=== PATIENT | male | born 1995 | race Caucasian/White ===

== ENCOUNTER 2018-08-31 12:46 | Emergency (ER) | payer BC, OTHER ==
[~2018-08-31] VITALS: Ht 167.6 cm; Wt 95.3 kg
--- OUTSIDE RECORDS SUMMARY | 2018-08-31 12:58 | XMS REPORT ---
Author Author MARE SUTHERLAND Organization [facility] Address [address] [place] [address] Care Team Providers Care Independent Sales Representative Name Role Phone MARE SUTHERLAND Unavailable PROBLEMS Type Condition ICD9-CM Code [id number] Code Onset Dates Condition Status SNOMED Code Problem Moderate persistent asthma without complication J45.40 Active [id number] Problem Asthma, moderate persistent, poorly-controlled J45.40 Active [id number] ALLERGIES No Known Allergies ENCOUNTERS Encounter Location Date Diagnosis [facility] [address] [facility] [id number] [place] [address] Dec, Asthma, moderate persistent, poorly-controlled J45.40 and Moderate persistent asthma without complication J45.40 IMMUNIZATIONS No Known Immunizations SOCIAL HISTORY Never Assessed REASON FOR VISIT Asthma, PT reports his asthma has recently worsened -Dre OLGUIN PLAN OF CARE Activity Details Follow Up 6 Months Reason:asthma VITAL SIGNS Height 77 in 2017-12-03 Weight 199.5 lbs 2017-12-03 Temperature 98.0 degrees Fahrenheit 2017-12-03 Heart Rate 74 bpm 2017-12-03 Respiratory Rate 20 2017-12-03 Oximetry 97 % 2017-12-03 BMI 23.65 kg/m2 2017-12-03 Blood pressure systolic 128 mmHg 2017-12-03 Blood pressure diastolic 68 mmHg 2017-12-03 MEDICATIONS Medication Instructions Dosage Frequency Start Date End Date Duration Status Montelukast Sodium 10 MG Orally Once a day 24h Active Pulmicort Flexhaler 90 MCG/ACT Inhalation Twice a day 2 puffs 12h Dec, Feb, 30 days Active Albuterol Sulfate HFA Active RESULTS No Results PROCEDURES No Known procedures INSTRUCTIONS MEDICATIONS ADMINISTERED No Known Medications MEDICAL (GENERAL) HISTORY Type Description Date Medical History Asthma
--- NOTE | 2018-08-31 14:17 | ED Chest Pain ---
General Chief Complaint: Chest Pain Stated Complaint: CHEST PAIN Nursing Triage Note: Pt arrived by private vehicle with chief complaint of chest pain. Pt stated it started yesterday and is getting worse with activity. Pt stated he has heart problems, but when asking about past medical history he stated he only has asthma. Pt stated that it feels tight and feels like needles. Pt is alert, oriented and ambulatory. Nursing Sepsis Screen: No Definite Risk Source: patient, RN notes reviewed Exam Limitations: no limitations Past Oiyyhlg-Egshkq-Djpmkm Hx Patient Social History Alcohol Use: Denies Use Recreational Drug Use: No Smoking Status: Never a Smoker 2nd Hand Smoke Exposure: No Recent Foreign Travel: No Contact w/Someone Who Travel: No Recent Infectious Disease Expo: No Recent Hopitalizations: No Physical Abuse: No Sexual Abuse: No Mistreated: No Fear: No Seasonal Allergies Seasonal Allergies: No Past Medical History Surgeries: No Respiratory: Yes Asthma Cardiac: No Neurological: No Genitourinary: No Gastrointestinal: No Musculoskeletal: No Endocrine: No HEENT: No Cancer: No Psychosocial: No Integumentary: No Blood Disorders: No Physical Exam Vital Signs Vital Signs - First Documented 08/31/18 13:22 Temp 98.6 Pulse 81 Resp 18 B/P (MAP) 127/107 (114) Pulse Ox 99 O2 Delivery Room Air Capillary Refill : Less Than 3 Seconds Height, Weight, BMI Height: 5'6.00" Weight: 210lbs. 0oz. 95.976131hv; BMI Method:Stated Progress/Results/Core Measures Results/Orders Lab Results Laboratory Tests Test 08/31/18 15:19 Range/Units White Blood Count 6.0 4.3-11.0 10^3/uL Red Blood Count 5.66 4.35-5.85 10^6/uL Hemoglobin 16.0 13.3-17.7 G/DL Hematocrit 48 40-54 % Mean Corpuscular Volume 84 80-99 FL Mean Corpuscular Hemoglobin 28 25-34 PG Mean Corpuscular Hemoglobin Concent 34 32-36 G/DL Red Cell Distribution Width 12.9 10.0-14.5 % Platelet Count 233 130-400 10^3/uL Mean Platelet Volume 9.9 7.4-10.4 FL Neutrophils (%) (Auto) 55 42-75 % Lymphocytes (%) (Auto) 36 12-44 % Monocytes (%) (Auto) 6 0-12 % Eosinophils (%) (Auto) 2 0-10 % Basophils (%) (Auto) 1 0-10 % Neutrophils # (Auto) 3.3 1.8-7.8 X 10^3 Lymphocytes # (Auto) 2.2 1.0-4.0 X 10^3 Monocytes # (Auto) 0.4 0.0-1.0 X 10^3 Eosinophils # (Auto) 0.1 0.0-0.3 10^3/uL Basophils # (Auto) 0.0 0.0-0.1 10^3/uL Sodium Level 141 135-145 MMOL/L Potassium Level 4.3 3.6-5.0 MMOL/L Chloride Level 102 98-107 MMOL/L Carbon Dioxide Level 29 21-32 MMOL/L Anion Gap 10 5-14 MMOL/L Blood Urea Nitrogen 17 7-18 MG/DL Creatinine 0.81 0.60-1.30 MG/DL Estimat Glomerular Filtration Rate > 60 BUN/Creatinine Ratio 21 Glucose Level 95 70-105 MG/DL Calcium Level 9.7 8.5-10.1 MG/DL Corrected Calcium 8.5-10.1 MG/DL Magnesium Level 1.8 1.8-2.4 MG/DL Total Bilirubin 0.8 0.1-1.0 MG/DL Aspartate Amino Transf (AST/SGOT) 17 5-34 U/L Alanine Aminotransferase (ALT/SGPT) 19 0-55 U/L Alkaline Phosphatase 65 40-136 U/L Troponin T < 15 <=15 NG/L Total Protein 8.2 6.4-8.2 GM/DL Albumin 5.2 H 3.2-4.5 GM/DL My Orders Orders - AYUSH BRANTLEY DO Chest Pa/Lat (2 View) (08/31/18 13:48) Cbc With Automated Diff (08/31/18 14:58) Troponin T (08/31/18 14:58) Comprehensive Metabolic Panel (08/31/18 14:58) Magnesium (08/31/18 14:58) Ekg Tracing (08/31/18 15:08) Vital Signs/I&O 08/31/18 13:22 Temp 98.6 Pulse 81 Resp 18 B/P (MAP) 127/107 (114) Pulse Ox 99 O2 Delivery Room Air Blood Pressure Mean: 114 Initial ECG Impression Date: Aug 31, 2018 Initial ECG Rhythm: Normal Sinus Initial ECG Intervals: Normal Initial ECG Impression: Normal Initial ECG Comparisson: No Previous ECG Available Departure Impression Primary Impression: Pleurisy Disposition: 01 HOME, SELF-CARE Condition: Stable Departure-Patient Inst. Decision time for Depature: 16:17 [place] [facility] [place]ructions: Pleuritic Chest Pain (DC) Add. Discharge Instructions: All discharge instructions reviewed with patient and/or family. Voiced understanding. MAKE TAKE 1000 mg OF TYLENOL &/OR 400 mg OF IBUPROFEN EVERY 6 HOURS NEEDED FOR CHEST PAIN. DO NOT EXCEED 4000 mg OF TYLENOL IN A 24 HOUR PERIOD. Scripts Methylprednisolone (Medrol) 4 Mg Tab.ds.pk 4 MG PO UD for 6 Days, #21 PKG 0 Refills PER DOSE PACK INSTRUCTIONS Prov: AYUSH BRANTLEY DO 08/31/18 AYUSH BRANTLEY DO Aug 31, 2018 14:17
--- NOTE | 2018-08-31 14:37 | NUR ---
Pt stated his chest pain started yesterday at noon after he got home paying bills. He was not doing any activities. Pt stated this previously happened in past in high school football. Pt has past medical history of asthma.
--- NOTE | 2018-08-31 14:59 | Diagnostic Imaging Report ---
INDICATION: Chest pain. COMPARISON: None. FINDINGS: Frontal and lateral views of the chest demonstrate normal heart size and pulmonary vascularity. The lungs are clear. There are no signs of infiltrate, pleural effusions or pneumothoraces. The visualized osseous structures show no acute abnormalities. IMPRESSION: 1. No acute process. No signs of infiltrates, effusions or pneumothoraces. Dictated by: Dictated on workstation # [id number]
[2018-08-31 15:51] LABS: BASOPHILS % (AUTO) 1 % (0-10); EOSINOPHILS % (AUTO) 2 % (0-10); HEMATOCRIT 48 % (40-54); LYMPHOCYTES % (AUTO) 36 % (12-44); MEAN CORPUSCULAR HEMOGLOBIN 28 PG (25-34); MEAN CORPUSCULAR HGB CONC 34 G/DL (32-36); MEAN CORPUSCULAR VOLUME 84 FL (80-99); MEAN PLATELET VOLUME 9.9 FL (7.4-10.4); MONOCYTES % (AUTO) 6 % (0-12); NEUTROPHILS # (AUTO) 3.3 X 10^3 (1.8-7.8); NEUTROPHILS % (AUTO) 55 % (42-75); PLATELET COUNT 233 10^3/uL (130-400); RED CELL DISTRIBUTION WIDTH 12.9 % (10.0-14.5)
[2018-08-31 15:52] LABS: EOSINOPHILS # (AUTO) 0.1 10^3/uL (0.0-0.3); LYMPHOCYTES # (AUTO) 2.2 X 10^3 (1.0-4.0); MONOCYTES # (AUTO) 0.4 X 10^3 (0.0-1.0)
[2018-08-31 16:06] LABS: ALANINE AMINOTRANSFERASE 19 U/L (0-55); ALBUMIN 5.2 GM/DL (3.2-4.5); ALKALINE PHOSPHATASE 65 U/L (40-136); BILIRUBIN,TOTAL 0.8 MG/DL (0.1-1.0); BUN/CREATININE RATIO 21; CALCIUM 9.7 MG/DL (8.5-10.1); CARBON DIOXIDE 29 MMOL/L (21-32); CHLORIDE 102 MMOL/L (98-107); CREATININE SERUM 0.81 MG/DL (0.60-1.30); GFR ESTIMATED > 60; GLUCOSE 95 MG/DL (70-105); MAGNESIUM 1.8 MG/DL (1.8-2.4); POTASSIUM 4.3 MMOL/L (3.6-5.0); SODIUM 141 MMOL/L (135-145); TOTAL PROTEIN 8.2 GM/DL (6.4-8.2)
[2018-08-31] MEDS ORDERED: METH4TAB PO (16:18)
[2018-08-31 16:33] VITALS: BP 113/73
== END 2018-08-31 16:33 | disposition home or self-care (01) ==
LOC: EDUNIT# 12:46 → ER FS 12:49
DX: R07.81 Pleurodynia (principal); J45.909 Unspecified asthma, uncomplicated
CPT/HCPCS: 36415; 71046; 80053; 83735; 84484; 85025; 93005

== ENCOUNTER 2018-09-03 15:23 | Emergency (ER) | payer BC ==
[~2018-09-03] VITALS: Ht 167.6 cm; Wt 95.3 kg
[~2018-09-03 15:23] MED LIST: METH4TAB PO
--- NOTE | 2018-09-03 15:47 | ED Respiratory ---
General Chief Complaint: Respiratory Problems Stated Complaint: CHEST PAIN, TROUBLE BREATHING Source: patient Exam Limitations: no limitations History of Present Illness Date Seen by Provider: September 03, 2018 Time Seen by Provider: 15:41 Initial Comments Patient is a 22-year-old male presents with persistent shortness of breath, chest tightness which is been intermittent since last ED visit on 08/29/18. Patient was diagnosed and treated for pleurisy and prescribed a Medrol Dosepak which she has been taking. States chest pain or, in go is worse with deep breathing and low be occasionally accompanied with shortness of breath. No history of asthma or reactive airway disease. No sore throat fever chills, nausea vomiting or sweats. Denies abdominal pain, tenderness. No pain after eating. Denies leg pain swelling. No recent travel, no history of family history of DVT or PE. No other acute symptoms or complaints. Patient has not followed up with primary care physician since his last visit. Timing/Duration: week Prior Episodes/Possible Cause: no prior episodes Modifying Factors: Improves With Other Associated Symptoms: denies symptoms (breathing) Allergies and Home Medications Home Medications Methylprednisolone 4 Mg Tab.ds.pk, 4 MG PO UD PER DOSE PACK INSTRUCTIONS Prescribed by: AYUSH BRANTLEY on 08/31/18 1618 Patient Home Medication List Home Medication List Reviewed: Yes Review of Systems Review of Systems Constitutional: no symptoms reported EENTM: no symptoms reported Respiratory: no symptoms reported, dyspnea on exertion Cardiovascular: see HPI Gastrointestinal: no symptoms reported Genitourinary: no symptoms reported Musculoskeletal: no symptoms reported Skin: no symptoms reported Psychiatric/Neurological: No Symptoms Reported Hematologic/Lymphatic: No Symptoms Reported Past Rbuocka-Mujhyv-Zolohd Hx Past Med/Social Hx: Reviewed Nursing Past Med/Soc Hx Patient Social History 2nd Hand Smoke Exposure: No Recent Foreign Travel: No Contact w/Someone Who Travel: No Recent Hopitalizations: No Physical Abuse: No Sexual Abuse: No Mistreated: No Fear: No Seasonal Allergies Seasonal Allergies: No Past Medical History Surgeries: No Respiratory: Yes Asthma Cardiac: No Neurological: No Genitourinary: No Gastrointestinal: No Musculoskeletal: No Endocrine: No HEENT: No Cancer: No Psychosocial: No Integumentary: No Blood Disorders: No Physical Exam Capillary Refill : Height: 5'6.00" Weight: 210lbs. 0oz. 95.754974dh; BMI Method:Stated General Appearance: WD/WN, no apparent distress Eyes: Bilateral Eye Normal Inspection, Bilateral Eye PERRL HEENT: PERRL/EOMI, normal ENT inspection, TMs normal, pharynx normal Neck: non-tender, full range of motion, supple, normal inspection Respiratory: chest non-tender, lungs clear, normal breath sounds, no respiratory distress, no accessory muscle use; No decreased breath sounds, No accessory muscle use, No crackles, No rales, No rhonchi, No wheezing, No expiration, No inspiration, No plerual rub Cardiovascular: regular rate, rhythm Gastrointestinal: normal bowel sounds, non tender, soft Extremities: normal range of motion, non-tender, no pedal edema, no calf tenderness 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 Symptoms are most consistent with pleurisy. Patient is afebrile with stable vital signs. No signs of evidence of DVT on exam. No additional risk factors for PE. We'll obtain EKG to evaluate for potential pericarditis. If negative, will discharge home with additional supportive and PCP referral. Impression Primary Impression: Anterior chest wall pain Disposition: 01 HOME, SELF-CARE Condition: Stable Departure-Patient Inst. Decision time for Depature: 15:45 [place] [facility] [place] Instructions: Pleuritic Chest Pain (DC) Add. Discharge Instructions: Please continue steroid dosepak for chest wall pain and take tramadol as needed for additional relief. Contact local PCP and schedule follow-up appointment early next week. Return to the ED if new or worsening symptoms. All discharge instructions reviewed with patient and/or family. Voiced understanding. Scripts Tramadol HCl (Tramadol HCl) 50 Mg Tablet 50 MG PO Q6H PRN for PAIN for 3 Days, #15 TAB 0 Refills Prov: MORGAN GARZA DO 09/03/18 MORGAN GARZA DO September 03, 2018 15:47
[2018-09-03] MEDS ORDERED: TRAM50TA2 PO (15:48)
[2018-09-03 16:04] VITALS: BP 115/63
== END 2018-09-03 16:02 | disposition home or self-care (01) ==
LOC: EDUNIT# 15:23 → ER FS 15:25
DX: R07.89 Other chest pain (principal); J45.909 Unspecified asthma, uncomplicated; Z79.52 Long term (current) use of systemic steroids
CPT/HCPCS: 93005

== ENCOUNTER 2020-08-01 07:18 | Emergency (ER) | payer BC, OTHER ==
[~2020-08-01] VITALS: Ht 170.1 cm; Wt 121.2 kg
[~2020-08-01 07:18] MED LIST changes: +TRM50T PO
[2020-08-01 07:34] VITALS: BP 123/69
[2020-08-01] MEDS ORDERED: PRD50T PO (07:45)
[2020-08-01] MEDS ORDERED: RT-ALBUINH IH (07:45)
[2020-08-01] MEDS ORDERED: FLUT1BLS11 IH (07:45)
--- NOTE | 2020-08-01 07:47 | ED General ---
General Chief Complaint: General Problems/Pain Stated Complaint: BREATHING PROBLEM History of Present Illness Date Seen by Provider: Aug 01, 2020 Time Seen by Provider: 07:22 Initial Comments 24-year-old male with past medical history significant for asthma presents with 3-month history of waking up at night short of air and difficulty catching his breath. He has not seen a doctor in several years and has been using vmqz-vgx-augawbd Primatene Mist as needed for his shortness of air. Has not used albuterol for years. He does have shortness of air and wheezing today and night. He is not a smoker, denies illicit drug use or marijuana. Says he has had asthma his whole life. He lives in a house with cats and was not aware that this might be a trigger. Denies fever or chills, diaphoresis or chest pain. He does have moderate mucus draining and intermittent wheezing as stated above. Allergies and Home Medications Allergies Coded Allergies: No Known Drug Allergies (Unverified , 08/01/20) Home Medications Albuterol Sulfate 1 Puff Puff, 2 PUFF IH Q4H 1 PUFF = 90 MCG Prescribed by: CHRISSY AVALOS on 08/01/20 0745 Fluticasone Propion/Salmeterol 1 Each Blst.w.dev, 1 EACH IH BID Prescribed by: CHRISSY AVALOS on 08/01/20 0745 Methylprednisolone 4 Mg Tab.ds.pk, 4 MG PO UD PER DOSE PACK INSTRUCTIONS Prescribed by: AYUSH BRANTLEY on 08/31/18 1618 Prednisone 50 Mg Tab, 50 MG PO DAILY Prescribed by: CHRISSY AVALOS on 08/01/20 0745 Tramadol HCl 50 Mg Tablet, 50 MG PO Q6H PRN for PAIN Prescribed by: MORGAN GARZA on 09/03/18 1548 Patient Home Medication List Home Medication List Reviewed: Yes Review of Systems Review of Systems Constitutional: No dizziness, No fever, No malaise, No weakness EENTM: see HPI, nose congestion; No throat pain, No throat swelling Respiratory: see HPI, cough, dyspnea on exertion; No hemoptysis; phlegm, short of breath; No stridor; wheezing Cardiovascular: No chest pain, No edema, No palpitations, No syncope Gastrointestinal: No abdominal pain, No nausea, No vomiting Musculoskeletal: No back pain, No joint pain Skin: No change in color, No lesions, No lumps, No rash Past Vbtzfcj-Tibfoi-Bbfxew Hx Past Med/Social Hx: Reviewed Nursing Past Med/Soc Hx Patient Social History Alcohol Use: Denies Use Smoking Status: Never a Smoker 2nd Hand Smoke Exposure: No Recent Hopitalizations: No Seasonal Allergies Seasonal Allergies: No Past Medical History Surgeries: No Respiratory: Yes Asthma Cardiac: No Neurological: No Genitourinary: No Gastrointestinal: No Musculoskeletal: No Endocrine: No HEENT: No Cancer: No Psychosocial: No Integumentary: No Blood Disorders: No Physical Exam Vital Signs Vital Signs - First Documented 08/01/20 07:34 Temp 36.0 Pulse 70 Resp 18 B/P (MAP) 123/69 (87) Pulse Ox 100 O2 Delivery Room Air Capillary Refill : Height, Weight, BMI Height: 5'6.00" Weight: 210lbs. 0oz. 95.094710yb; BMI Method:Stated General Appearance: No Apparent Distress, WD/WN HEENT: PERRL/EOMI, Normal ENT Inspection Neck: Full Range of Motion, Non Tender Respiratory: Chest Non Tender, Lungs Clear, Normal Breath Sounds, No Accessory Muscle Use, No Respiratory Distress Cardiovascular: Regular Rate, Rhythm, No Edema, No Gallop, No JVD Gastrointestinal: Non Tender, Soft Back: Normal Inspection, No CVA Tenderness Neurologic/Psychiatric: Alert, Oriented x3, Normal Mood/Affect Progress/Results/Core Measures Suspected Sepsis SIRS Temperature: Pulse: Respiratory Rate: Blood Pressure / Mean: Results/Orders Vital Signs/I&O 08/01/20 07:34 Temp 36.0 Pulse 70 Resp 18 B/P (MAP) 123/69 (87) Pulse Ox 100 O2 Delivery Room Air Capillary Refill : Departure Impression Primary Impression: Uncontrolled severe persistent asthma Disposition: HOME, SELF-CARE Condition: Stable Departure-Patient Inst. Referrals: [facility] [place],LOCAL PHYSICIAN (PCP) Primary Care Physician Patient Instructions: Asthma, Adult (DC) Add. Discharge Instructions: establish a Primary Care Physician at the [facility] for management of your asthma. You should be seen the end of this week. All discharge instructions reviewed with patient and/or family. Voiced und erstanding. Scripts Fluticasone Propion/Salmeterol (Fluticasone-Salmeterol 100-50) 1 Each Blst.w.dev 1 EACH IH BID, #1 EA Prov: CHRISSY AVALOS DO 08/01/20 Prednisone (Prednisone) 50 Mg Tab 50 MG PO DAILY, #7 TAB Prov: CHRISSY AVALOS DO 08/01/20 Albuterol Sulfate (PROAIR HFA) 1 Puff Puff 2 PUFF IH Q4H for Cough, #1 PUFF 1 Refill 1 PUFF = 90 MCG Prov: CHRISSY AVALOS DO 08/01/20 Work/School Note: Work Release Form Date Seen in the Emergency Department: Aug 01, 2020 Return to Work: Aug 01, 2020 Restrictions: No Restrictions CHRISSY AVALOS DO Aug 01, 2020 07:47
== END 2020-08-01 07:50 | disposition home or self-care (01) ==
LOC: EDUNIT# 07:18 → ER FS 07:20
DX: J45.50 Severe persistent asthma, uncomplicated (principal); Z79.51 Long term (current) use of inhaled steroids; Z79.52 Long term (current) use of systemic steroids
CPT/HCPCS: 99281

== ENCOUNTER 2021-04-12 10:20 | Emergency (ER) | payer SELFPAY ==
[~2021-04-12] VITALS: Ht 167.7 cm; Wt 134.9 kg
[~2021-04-12 10:20] MED LIST changes: +FLUT1BLS11 IH; +PRD50T PO; +RT-ALBUINH IH
--- NOTE | 2021-04-12 10:52 | Diagnostic Imaging Report ---
Indication: Left-sided chest pain. FINDINGS: Portable chest. The lungs are well-aerated and clear. The heart is not enlarged. There is no pulmonary edema or hilar adenopathy. No pneumothorax or pleural effusion. No bony abnormalities. IMPRESSION: Normal portable chest. Dictated by: Dictated on workstation # [id number]
--- NOTE | 2021-04-12 11:11 | ED Chest Pain ---
General Chief Complaint: Chest Pain Stated Complaint: CHEST PAIN Nursing Triage Note: Patient presents to the ED with c/o chest pain. He states the pain began around 9am this morning while he was getting ready for work. He reports that he has had chest pain intermittently since March and usually occurs at night. Source: patient Exam Limitations: no limitations History of Present Illness Date Seen by Provider: Apr 12, 2021 Time Seen by Provider: 10:00 Initial Comments Patient is a 25-year-old male who presents with intermittent weekly left parasternal chest pain for the past several weeks. Pain is sharp brief worse with palpation and relieved with Aleve. It is worse after manual exertion at work. He denies exertional chest pain shortness of breath, nausea vomiting or sweats. No fever chills, sore throat cough. No leg pain or swelling. No other acute symptoms or complaints. Symptoms are currently rated moderate. Patient does not take any medications other than Aleve and has not been evaluated by primary care provider prior to today's ED visit. Timing/Duration: other (Several weeks) Severity/Quality: other (Burning) Location: other (Left parasternal) Radiation: no radiation Activities at Onset: none Prior CP/Workup: no prior chest pain Allergies and Home Medications Allergies Coded Allergies: No Known Drug Allergies (Unverified , 08/01/20) Patient Home Medication List Home Medication List Reviewed: Yes Albuterol Sulfate (Proair Hfa) 1 Puff Puff, 2 PUFF IH Q4H Prescribed by: CHRISSY AVALOS on 08/01/20 0745 Fluticasone Propion/Salmeterol (Fluticasone-Salmeterol 100-50) 1 Each Blst.w.dev, 1 EACH IH BID Prescribed by: CHRISSY AVALOS on 08/01/20 0745 Methylprednisolone (Medrol) 4 Mg Tab.ds.pk, 4 MG PO UD Prescribed by: AYUSH BRANTLEY on 08/31/18 1618 Prednisone (Prednisone) 50 Mg Tab, 50 MG PO DAILY Prescribed by: CHRISSY AVALOS on 08/01/20 0745 Tramadol HCl (Tramadol HCl) 50 Mg Tablet, 50 MG PO Q6H PRN for PAIN Prescribed by: MORGAN GARZA on 09/03/18 1462 Review of Systems Review of Systems Constitutional: see HPI EENTM: See HPI Respiratory: See HPI Cardiovascular: See HPI Gastrointestinal: See HPI Genitourinary: See HPI Musculoskeletal: see HPI Skin: see HPI Psychiatric/Neurological: See HPI Endocrine: See HPI Hematologic/Lymphatic: See HPI All Other Systems Reviewed Negative Unless Noted: Yes Past Lycgtzq-Zfdirp-Etbzax Hx Patient Social History Tobacco Use?: Yes Use of E-Cig and/or Vaping dev: No Substance use?: No Alcohol Use?: No Pt feels they are or have been: No Immunizations Up To Date First/Initial COVID19 Vaccinat: Not currently vaccinated Seasonal Allergies Seasonal Allergies: No Past Medical History Surgery/Hospitalization HX: No medical or surgical history Surgeries: No Respiratory: Yes Asthma Cardiac: No Neurological: No Genitourinary: No Gastrointestinal: No Musculoskeletal: No Endocrine: No HEENT: No Cancer: No Psychosocial: No Integumentary: No Blood Disorders: No Physical Exam Vital Signs Vital Signs - First Documented 04/12/21 10:20 Temp 35.8 Pulse 70 Resp 18 B/P (MAP) 134/68 (90) Pulse Ox 99 O2 Delivery Room Air Capillary Refill : Less Than 3 Seconds Height, Weight, BMI Height: 5'6.00" Weight: 210lbs. 0oz. 95.139627jn; 47.00 BMI Method:Stated General Appearance: No Apparent Distress, WD/WN HEENT: PERRL/EOMI, Normal ENT Inspection, Pale Conjunctivae (L) Neck: Supple Respiratory: Chest Non Tender, Lungs Clear, Other (Left parasternal point tenderness or costal cartilage) Cardiovascular: Regular Rate, Rhythm Gastrointestinal: Non Tender, Soft Focused Exam Sepsis Stage: Ruled Out Progress/Results/Core Measures Results/Orders My Orders Orders - MORGAN GARZA DO Ekg Tracing (04/12/21 10:33) Chest 1 View Ap/Pa Only (04/12/21 10:41) Vital Signs/I&O 04/12/21 10:20 Temp 35.8 Pulse 70 Resp 18 B/P (MAP) 134/68 (90) Pulse Ox 99 O2 Delivery Room Air Blood Pressure Mean: 90 Departure Communication (Admissions) Chest x-ray: No acute cardiopulmonary disease. EKG: Sinus rhythm, rate 70, no acute ST-T wave changes, normal VA, QRS, QTc intervals. Patient's exam consistent with costochondritis. Recommendations are supportive care and to establish with local PCP. Return precautions reviewed. Patient verbalizes understanding agreement discharge instructions prior to departure. Impression Primary Impression: Chest wall pain Additional Impression: Costochondritis, acute Disposition: 01 HOME, SELF-CARE Condition: Stable Departure-Patient Inst. Referrals: NO,LOCAL PHYSICIAN (PCP/Family) Primary Care Physician Patient Instructions: Costochondritis, Chest Pain (DC) Add. Discharge Instructions: Please take 2 Aleve twice daily for the next week and establish with a local primary care provider. Follow-up with a local primary care provider in the next 7 to 10 days for reevaluation. Return to the ED if new or worsening symptoms. All discharge instructions reviewed with patient and/or family. Voiced understanding. MORGAN GARZA DO Apr 12, 2021 11:11
[2021-04-12 11:14] VITALS: BP 134/68
== END 2021-04-12 11:14 | disposition home or self-care (01) ==
LOC: EDUNIT# 10:20 → ER FS 10:23
DX: R07.89 Other chest pain (principal); M94.0 Chondrocostal junction syndrome [Tietze]; J45.909 Unspecified asthma, uncomplicated; Z72.0 Tobacco use; Z79.52 Long term (current) use of systemic steroids
CPT/HCPCS: 71045; 93005

== ENCOUNTER 2021-05-08 00:36 | Emergency (ER) | payer SELFPAY ==
[2021-05-08] MEDS ORDERED: predniSONE 20 MG TAB PO STA (00:54)
[2021-05-08] MEDS ORDERED: RT-ALBUTEROL HFA 8.5 GM INHALER IH PRN (01:00)
[2021-05-08] MEDS ORDERED: PRD20T PO (01:02)
--- NOTE | 2021-05-08 01:02 | ED Respiratory ---
General Chief Complaint: Respiratory Problems Stated Complaint: SOB;ASTHMA ATTACK;CHEST PAIN Nursing Triage Note: Pt complaining of chest pain and shortness of breath that started about a week ago. Source: patient History of Present Illness Date Seen by Provider: May 08, 2021 Time Seen by Provider: 00:38 Initial Comments 25-year-old male presenting with complaints of asthma attack and feeling short of breath. He states over a week now he has had intermittent feelings of feeling hot and flushed all over his body. He has burning sensation and tightness in his chest. He has not been coughing up any mucus or phlegm. He denies any actual fever but has felt hot and warm. He is out of albuterol and has not had any medications for his asthma. He felt that his asthma was out of control and the weather changes had made things worse for him. He denies having a primary care physician and has not tried to get established with [facility] or any local primary providers. Timing/Duration: week Severity: severe Prior Episodes/Possible Cause: frequent episodes Modifying Factors: Worse With Activity Associated Symptoms: chest pain/soreness, cough; No dizziness, No earache, No facial pain, No fever/chills (Subjective); headache; No lightheadedness, No muscle aches, No nasal congestion, No nasal drainage, No shortness of breath, No sinus infection, No sore throat, No wheezing Allergies and Home Medications Allergies Coded Allergies: No Known Drug Allergies (Unverified , 08/01/20) Patient Home Medication List Home Medication List Reviewed: Yes Albuterol Sulfate (Proair Hfa) 1 Puff Puff, 2 PUFF IH Q4H Prescribed by: CHRISSY AVALOS on 08/01/20 0745 Fluticasone Propion/Salmeterol (Fluticasone-Salmeterol 100-50) 1 Each Blst.w.dev, 1 EACH IH BID Prescribed by: CHRISSY AVALOS on 08/01/20 0745 Methylprednisolone (Medrol) 4 Mg Tab.ds.pk, 4 MG PO UD Prescribed by: AYUSH BRANTLEY on 08/31/18 1618 Prednisone (Prednisone) 50 Mg Tab, 50 MG PO DAILY Prescribed by: CHRISSY AVALOS on 08/01/20 0745 Prednisone (Prednisone) 20 Mg Tab, 40 MG PO DAILY Prescribed by: LORETTA HASSAN on 05/08/21 010 Tramadol HCl (Tramadol HCl) 50 Mg Tablet, 50 MG PO Q6H PRN for PAIN Prescribed by: MORGAN GARZA on 09/03/18 1548 Review of Systems Review of Systems Constitutional: see HPI EENTM: nose congestion (mild); No epistaxis, No throat pain, No throat swelling Respiratory: see HPI Cardiovascular: see HPI Gastrointestinal: see HPI Genitourinary: no symptoms reported Musculoskeletal: muscle pain (Generalized body aches) Skin: No rash Psychiatric/Neurological: Headache Hematologic/Lymphatic: Denies Blood Clots Past [id number]-[id number]-Txxsny Hx Patient Social History Tobacco Use?: Yes Tobacco type used: Cigarettes Substance use?: No Alcohol Use?: No Pt feels they are or have been: No Immunizations Up To Date First/Initial COVID19 Vaccinat: Not currently vaccinated Seasonal Allergies Seasonal Allergies: No Past Medical History Surgery/Hospitalization HX: Asthma Surgeries: No Respiratory: Yes Asthma Cardiac: No Neurological: No Genitourinary: No Gastrointestinal: No Musculoskeletal: No Endocrine: No HEENT: No Cancer: No Psychosocial: No Integumentary: No Blood Disorders: No Physical Exam Vital Signs - First Documented 05/08/21 05/08/21 00:39 01:06 Temp 37.0 Pulse 103 Resp 20 B/P (MAP) 130/91 (104) Pulse Ox 96 O2 Delivery Room Air Capillary Refill : Less Than 3 Seconds Height: 5'6.00" Weight: 210lbs. 0oz. [id number]; 47.00 BMI Method:Stated General Appearance: mild distress, obese HEENT: PERRL/EOMI, pharynx normal Neck: non-tender, full range of motion, supple, normal inspection Respiratory: chest non-tender, lungs clear, no respiratory distress, no accessory muscle use, decreased breath sounds Cardiovascular: normal peripheral pulses, regular rate, rhythm Gastrointestinal: normal bowel sounds, soft, no pulsatile mass Extremities: normal range of motion, non-tender, no calf tenderness, normal capillary refill Neurologic/Psychiatric: alert, oriented x 3 Skin: normal color, warm/dry Progress/Results/Core Measures Suspected Sepsis SIRS Temperature: Pulse: 103 Respiratory Rate: 20 Blood Pressure 130 /91 Mean: 104 Results/Orders My Orders Orders - LORETTA HASSAN MD Albuterol Inhaler (Albuterol) (05/08/21 01:00) Prednisone Tablet (Deltasone Tablet) (05/08/21 00:54) Nursing Communication (Order) (05/08/21 00:54) Medications Given in ED Current Medications Medications Dose Ordered Sig/Juarez Route Start Time Stop Time Status Last Admin Dose Admin Albuterol Sulfate 2 PUFFS inhaled q 4 ho... RTQ4HR PRN IH 05/08/21 01:00 05/08/21 01:06 DC 05/08/21 01:03 1 GM Vital Signs/I&O 05/08/21 05/08/21 00:39 01:06 Temp 37.0 37.0 Pulse 103 103 Resp 20 20 B/P (MAP) 130/91 (104) 130/91 Pulse Ox 96 96 O2 Delivery Room Air Capillary Refill : Less Than 3 Seconds Blood Pressure Mean: 104 Progress Note : Progress Note Advised patient that I would need to do a chest x-ray and blood work as well as a swab to check for Covid and influenza and possibly a strep swab if he was complaining of feeling hot all over and feeling like his asthma was flared up. Patient refused testing stating that he has had those things done in the past and felt that it never helped contribute to his treatment. He felt that he just needed an inhaler and medication to help with his asthma. He has not tried the following up working established with the [facility] clinic so will provide that information again for him as well. Encouraged to call the clinic and get seen as soon as possible to establish care. Given an inhaler with a spacer as well as a first dose of prednisone for treating his asthma. Send a prescription to the pharmacy for continued prednisone burst Departure Impression Primary Impression: Uncontrolled severe persistent asthma Additional Impressions: Shortness of breath Cough due to bronchospasm Disposition: HOME, SELF-CARE Condition: Stable Departure-Patient Inst. Decision time for Depature: 00:58 Referrals: NO,LOCAL PHYSICIAN (PCP) Primary Care Physician [facility] [place] Patient Instructions: Asthma, Adult ED, How to Use a Metered Dose Inhaler ED, How to Use a Spacer, Shortness of Breath, Adult ED Add. Discharge Instructions: Use the albuterol inhaler with the spacer. 2 puffs every 4 hours as needed for shortness of breath or wheezing. Take the steroid daily for the next several days to help calm down the inflammation and cough. Call the [facility] clinic at [phone] and let them know that you needed to establish care with a provider for your asthma and general health. Return or seek medical care sooner if you are having worsening symptoms or not improving. At that point it would be a matter of having tests done that you had refused tonight such as blood work and x-ray as well as swabs to check for Covid or influenza. All discharge instructions reviewed with patient and/or family. Voiced understanding. Scripts Prednisone (Prednisone) 20 Mg Tab 40 MG PO DAILY for asthma/short of breath for 5 Days, #10 TAB 0 Refills Prov: LORETTA HASSAN MD 05/08/21 LORETTA HASSAN MD May 08, 2021 01:02
[2021-05-08 01:06] VITALS: BP 130/91
[2021-05-08] MEDS ORDERED: paxlovid (21:57)
== END 2021-05-08 01:06 | disposition home or self-care (01) ==
LOC: EDUNIT# 00:36 → ER FS 00:39
DX: J45.50 Severe persistent asthma, uncomplicated (principal); R06.02 Shortness of breath; J45.991 Cough variant asthma; E66.9 Obesity, unspecified; Z72.0 Tobacco use; Z68.42 Body mass index [BMI] 45.0-49.9, adult
CPT/HCPCS: 99283

== ENCOUNTER 2021-05-08 20:29 | Emergency (ER) | payer SELFPAY ==
[~2021-05-08] VITALS: Ht 168 cm; Wt 136.0 kg
[~2021-05-08 20:29] MED LIST changes: +PRD20T PO
--- NOTE | 2021-05-08 20:55 | ED General ---
General Stated Complaint: ASTHMA/SOA Source of Information: Patient Exam Limitations: No Limitations History of Present Illness Date Seen by Provider: May 08, 2021 Time Seen by Provider: 20:53 Initial Comments Obese asthmatic male to ER with c/o asthma flare up and shortness of breath. He states that he has poorly controlled asthma and does not take any medications for it but needs to but cannot afford them. States that he does not have a doctor. Over the course of the past week hes had a fever up to 101, cough, sweating, nausea. Has had a poor appetite because he cannot taste anything. He is unvaccinated against Covid. He was seen at [facility] earlier today for the same. Was given an albuterol inhaler and prednisone but does not feel like it is helping. Timing/Duration: 1-2 Days Severity: Moderate Associated Systoms: Cough, Headaches, Nausea/Vomiting, Shortness of Air Allergies and Home Medications Allergies Coded Allergies: No Known Drug Allergies (Unverified , 08/01/20) Patient Home Medication List Home Medication List Reviewed: Yes Albuterol Sulfate (Proair Hfa) 1 Puff Puff, 2 PUFF IH Q4H Prescribed by: CHRISSY AVALOS on 08/01/20 0745 Fluticasone Propion/Salmeterol (Fluticasone-Salmeterol 100-50) 1 Each Blst.w.dev, 1 EACH IH BID Prescribed by: CHRISSY AVALOS on 08/01/20 0745 Methylprednisolone (Medrol) 4 Mg Tab.ds.pk, 4 MG PO UD Prescribed by: AYUSH BRANTLEY on 08/31/18 1618 Prednisone (Prednisone) 50 Mg Tab, 50 MG PO DAILY Prescribed by: CHRISSY AVALOS on 08/01/20 0745 Prednisone (Prednisone) 20 Mg Tab, 40 MG PO DAILY Prescribed by: LORETTA HASSAN on 05/08/21 0102 Tramadol HCl (Tramadol HCl) 50 Mg Tablet, 50 MG PO Q6H PRN for PAIN Prescribed by: MORGAN GARZA on 09/03/18 1548 [paxlovid] Prescribed by: GAVINO CRUZ on 05/08/212156 Review of Systems Review of Systems Constitutional: see HPI EENTM: see HPI Respiratory: see HPI, cough, short of breath Cardiovascular: no symptoms reported Genitourinary: no symptoms reported Musculoskeletal: no symptoms reported Skin: no symptoms reported Psychiatric/Neurological: No Symptoms Reported Hematologic/Lymphatic: No Symptoms Reported Past Iqmfkuc-Svtdpe-Jsnkoh Hx Immunizations Up To Date First/Initial COVID19 Vaccinat: Not currently vaccinated Seasonal Allergies Seasonal Allergies: No Past Medical History Surgery/Hospitalization HX: Asthma Surgeries: No Respiratory: Yes Asthma Cardiac: No Neurological: No Genitourinary: No Gastrointestinal: No Musculoskeletal: No Endocrine: No HEENT: No Cancer: No Psychosocial: No Integumentary: No Blood Disorders: No Physical Exam Vital Signs Vital Signs - First Documented Capillary Refill : Height, Weight, BMI Height: 5'6.00" Weight: 210lbs. 0oz. 95.661831dx; 47.00 BMI Method:Stated General Appearance: No Apparent Distress, WD/WN, Mild Distress, Obese, Other (Respiratory rate of 36, oxygen 92% on room air after ambulating to room 10. Rises to 94% with rest. Heart rate is 101. Lungs are diminished without wheezing) Eyes: Bilateral Eye Normal Inspection, Bilateral Eye PERRL, Bilateral Eye EOMI HEENT: PERRL/EOMI, TMs Normal Neck: Full Range of Motion, Normal Inspection Respiratory: No Accessory Muscle Use, No Respiratory Distress; No Wheezing Cardiovascular: Normal Peripheral Pulses, Tachycardia Gastrointestinal: Normal Bowel Sounds, Non Tender, Soft Extremity: Normal Capillary Refill, Normal Inspection Neurologic/Psychiatric: Alert, Oriented x3 Skin: Normal Color, Warm/Dry Progress/Results/Core Measures Suspected Sepsis SIRS Temperature: Pulse: Respiratory Rate: Laboratory Tests 05/08/21 20:45: White Blood Count 5.1 Blood Pressure / Mean: Laboratory Tests 05/08/21 20:45: Creatinine 1.12, Platelet Count 214, Total Bilirubin 1.1H Results/Orders Lab Results Laboratory Tests Test 05/08/21 20:45 05/08/21 20:47 05/08/21 21:15 Range/Units White Blood Count 5.1 4.3-11.0 10^3/uL Red Blood Count 5.77 H 4.30-5.52 10^6/uL Hemoglobin 15.8 13.3-17.7 g/dL Hematocrit 47 40-54 % Mean Corpuscular Volume 82 80-99 fL Mean Corpuscular Hemoglobin 27 25-34 pg Mean Corpuscular Hemoglobin Concent 34 32-36 g/dL Red Cell Distribution Width 12.5 10.0-14.5 % Platelet Count 214 130-400 10^3/uL Mean Platelet Volume 10.3 9.0-12.2 fL Immature Granulocyte % (Auto) 0 % Neutrophils (%) (Auto) 72 42-75 % Lymphocytes (%) (Auto) 20 12-44 % Monocytes (%) (Auto) 8 0-12 % Eosinophils (%) (Auto) 0 0-10 % Basophils (%) (Auto) 0 0-10 % Neutrophils # (Auto) 3.7 1.8-7.8 10^3/uL Lymphocytes # (Auto) 1.0 1.0-4.0 10^3/uL Monocytes # (Auto) 0.4 0.0-1.0 10^3/uL Eosinophils # (Auto) 0.0 0.0-0.3 10^3/uL Basophils # (Auto) 0.0 0.0-0.1 10^3/uL Immature Granulocyte # (Auto) 0.0 0.0-0.1 10^3/uL Sodium Level 135 135-145 MMOL/L Potassium Level 3.7 3.6-5.0 MMOL/L Chloride Level 101 98-107 MMOL/L Carbon Dioxide Level 20 L 21-32 MMOL/L Anion Gap 14 5-14 MMOL/L Blood Urea Nitrogen 13 7-18 MG/DL Creatinine 1.12 0.60-1.30 MG/DL Estimat Glomerular Filtration Rate 81 BUN/Creatinine Ratio 12 Glucose Level 113 H 70-105 MG/DL Calcium Level 9.4 8.5-10.1 MG/DL Corrected Calcium 8.5-10.1 MG/DL Total Bilirubin 1.1 H 0.1-1.0 MG/DL Aspartate Amino Transf (AST/SGOT) 32 5-34 U/L Alanine Aminotransferase (ALT/SGPT) 50 0-55 U/L Alkaline Phosphatase 45 40-136 U/L C-Reactive Protein High Sensitivity 1.13 H 0.00-0.50 MG/DL Total Protein 8.4 H 6.4-8.2 GM/DL Albumin 4.7 H 3.2-4.5 GM/DL Blood Gas Puncture Site RIGHT RADIAL Blood Gas Patient Temperature 38.7 Arterial Blood pH 7.40 7.37-7.43 Arterial Blood Partial Pressure CO2 36 35-45 MMHG Arterial Blood Partial Pressure O2 79 79-93 MMHG Arterial Blood HCO3 22 L 23-27 MMOL/L Arterial Blood Total CO2 22.6 21.0-31.0 MMOL/L Arterial Blood Oxygen Saturation 94 94-100 % Arterial Blood Base Excess -2.1 -2.5-2.5 MMOL/L Gerardo Test POSITIVE Blood Gas Ventilator Setting NO Blood Gas Inspired Oxygen RA Influenza Type A Antigen NEGATIVE NEGATIVE Influenza Type B Antigen NEGATIVE NEGATIVE SARS-CoV-2 RNA (RT-PCR) Detected Negative D-Dimer 0.34 0.00-0.49 UG/ML My Orders Orders - GAVINO CRUZ APRN Covid 19 Inhouse Test (05/08/21 20:51) Cbc With Automated Diff (05/08/21 20:51) Comprehensive Metabolic Panel (05/08/21 20:51) Hs C Reactive Protein (05/08/21 20:51) Fibrin Degradation Products (05/08/21 20:51) Chest 1 View, Ap/Pa Only (05/08/21 20:51) Ed Iv/Invasive Line Start (05/08/21 20:51) Ibuprofen Tablet (Motrin Tablet) (05/08/21 21:00) Ondansetron Injection (Zofran Injectio (05/08/21 21:00) Lactated Ringers (Lr 1000 Ml Iv Solution (05/08/21 21:00) Arterial Blood Gas (05/08/21 20:56) Influenza A & B Antigens (05/08/21 20:47) Medications Given in ED Current Medications Medications Dose Ordered Sig/Juarez Route Start Time Stop Time Status Last Admin Dose Admin Ibuprofen 800 mg ONCE ONCE PO 05/08/21 21:00 05/08/21 21:01 DC 05/08/21 20:57 800 MG Ondansetron HCl 8 mg ONCE ONCE IVP 05/08/21 21:00 05/08/21 21:01 DC 05/08/21 20:57 8 MG Vital Signs/I&O 05/08/21 05/08/21 20:37 20:37 Temp 38.7 Pulse 107 Resp 23 B/P (MAP) 149/103 (118) Pulse Ox 95 O2 Delivery Room Air Room Air Capillary Refill : Departure Communication (Admissions) NAME: WOLFGANG VILLALOBOS [facility] REC#: [id number] PT STATUS: REG ER : 1995 PHYSICIAN: GAVINO CRUZ APRN ADMIT DATE: 05/08/21/ER Draft Date of Exam:05/08/21 CHEST 1 VIEW, AP/PA ONLY CLINICAL INDICATION: Patient with cough. EXAM: Portable chest x-ray upright view. COMPARISON: Chest x-ray dated 04/12/2021. FINDINGS: Lungs/pleura: Interval low lung volumes noted with curvilinear opacities in both lung bases. Otherwise, the remainder of the lungs are clear. There is no pneumothorax. There is no pleural effusion. Mediastinum: Unremarkable. Pulmonary vasculature: Unremarkable. Heart: Unremarkable. Bones/extrathoracic soft tissue: Unremarkable. IMPRESSION: There is interval low lung volumes with bibasilar atelectasis. There is no definite lung infiltrate. If necessary, chest x-ray, PA and lateral views with good inspiratory effort may help better evaluate. Dictated on workstation # [id number] Dict: 05/08/212119 Trans: 05/08/212131 [facility] [id number] Interpreted by: TRUDI COLON MD Electronically signed by: Impression Primary Impression: COVID-19 Disposition: 01 HOME, SELF-CARE Condition: Stable Departure-Patient Inst. Decision time for Depature: 21:47 Referrals: NO,LOCAL PHYSICIAN (PCP/Family) Primary Care Physician Patient Instructions: COVID-19 ED Add. Discharge Instructions: 1. Continue with your steroids. Take the antiviral medication as directed. Return to ER for any worsening. Scripts [[email or web address]] No Conflict Check Prov: GAVINO CRUZ APRN 05/08/21 Work/School Note: Work Release Form Date Seen in the Emergency Department: May 08, 2021 Return to Work: May 16, 2021 GAVINO CRUZ APRN May 08, 2021 20:55
[2021-05-08] MEDS ORDERED: IBUPROFEN 800 MG (MOTRIN) TAB PO ONE (21:00)
[2021-05-08] MEDS ORDERED: ONDANSETRON 4 MG/2 ML (SDV) Z0FRAN IVP ONE (21:00)
[2021-05-08] MEDS ORDERED: LACTATED RINGERS 1,000 ML IV SCH (21:00)
[2021-05-08 21:02] LABS: ABG BASE EXCESS -2.1 MMOL/L (-2.5-2.5); ABG OXYGEN SATURATION 94 % (94-100); ABG PCO2 36 MMHG (35-45); ABG PO2 79 MMHG (79-93); ABG TCO2 22.6 MMOL/L (21.0-31.0); ALLENS TEST POSITIVE; INSPIRED O2 RA; PATIENT TEMP 38.7; VENTILATOR NO
[2021-05-08 21:02] LABS: BASOPHILS % (AUTO) 0 % (0-10); EOSINOPHILS % (AUTO) 0 % (0-10); HEMATOCRIT 47 % (40-54); HEMOGLOBIN 15.8 g/dL (13.3-17.7); LYMPHOCYTES % (AUTO) 20 % (12-44); MEAN CORPUSCULAR HEMOGLOBIN 27 pg (25-34); MEAN CORPUSCULAR HGB CONC 34 g/dL (32-36); MEAN CORPUSCULAR VOLUME 82 fL (80-99); MEAN PLATELET VOLUME 10.3 fL (9.0-12.2); MONOCYTES # (AUTO) 0.4 10^3/uL (0.0-1.0); MONOCYTES % (AUTO) 8 % (0-12); NEUTROPHILS # (AUTO) 3.7 10^3/uL (1.8-7.8); NEUTROPHILS % (AUTO) 72 % (42-75); PLATELET COUNT 214 10^3/uL (130-400); WHITE BLOOD COUNT 5.1 10^3/uL (4.3-11.0)
[2021-05-08 21:14] LABS: ALBUMIN 4.7 GM/DL (3.2-4.5); CHLORIDE 101 MMOL/L (98-107); POTASSIUM 3.7 MMOL/L (3.6-5.0); SODIUM 135 MMOL/L (135-145)
[2021-05-08 21:15] LABS: CALCIUM 9.4 MG/DL (8.5-10.1)
[2021-05-08 21:17] LABS: GLUCOSE 113 MG/DL (70-105); TOTAL PROTEIN 8.4 GM/DL (6.4-8.2)
[2021-05-08 21:18] LABS: BILIRUBIN,TOTAL 1.1 MG/DL (0.1-1.0); CARBON DIOXIDE 20 MMOL/L (21-32)
[2021-05-08 21:20] LABS: ALKALINE PHOSPHATASE 45 U/L (40-136); CREATININE SERUM 1.12 MG/DL (0.60-1.30); GFR ESTIMATED 81
[2021-05-08 21:21] LABS: BUN/CREATININE RATIO 12
[2021-05-08 21:23] LABS: ALANINE AMINOTRANSFERASE 50 U/L (0-55)
--- NOTE | 2021-05-08 21:33 | Diagnostic Imaging Report ---
CLINICAL INDICATION: Patient with cough. EXAM: Portable chest x-ray upright view. COMPARISON: Chest x-ray dated 04/12/2021. FINDINGS: Lungs/pleura: Interval low lung volumes noted with curvilinear opacities in both lung bases. Otherwise, the remainder of the lungs are clear. There is no pneumothorax. There is no pleural effusion. Mediastinum: Unremarkable. Pulmonary vasculature: Unremarkable. Heart: Unremarkable. Bones/extrathoracic soft tissue: Unremarkable. IMPRESSION: There is interval low lung volumes with bibasilar atelectasis. There is no definite lung infiltrate. If necessary, chest x-ray, PA and lateral views with good inspiratory effort may help better evaluate. Dictated by: Dictated on workstation # [id number]
[2021-05-08] MEDS ORDERED: paxlovid (21:57)
[2021-05-08 22:07] VITALS: BP 148/105
== END 2021-05-08 22:07 | disposition home or self-care (01) ==
LOC: EDUNIT# 20:29 → ER 20:31
DX: U07.1 COVID-19 (principal); E66.9 Obesity, unspecified; Z68.42 Body mass index [BMI] 45.0-49.9, adult
CPT/HCPCS: 36415; 71045; 80053; 82805; 85025; 85379; 86141; 87636; 87804

== ENCOUNTER → 2021-06-13 | Outpatient (CLI) | payer SELFPAY ==
[~2021-06-13] MED LIST changes: +paxlovid
[2021-06-13 14:50] LABS: SEMEN VOLUME 1.5 ML (1.5-5.0)
== END ==
LOC: LAB 13:30
PROVIDERS: ATTEND Obstetrics & Gynecology
DX: N46.9 Male infertility, unspecified (principal)
CPT/HCPCS: 89320

== ENCOUNTER 2022-03-05 09:23 | Emergency (ER) | payer SELFPAY ==
[~2022-03-05] VITALS: Ht 175 cm; Wt 136.0 kg
[~2022-03-05 09:23] MED LIST changes: +ALBU8.5H6 IH; -RT-ALBUINH IH
--- NOTE | 2022-03-05 09:36 | ED Chest Pain ---
General Chief Complaint: Chest Pain Stated Complaint: CHEST PAIN; SOB History of Present Illness Date Seen by Provider: Mar 05, 2022 Time Seen by Provider: 09:36 Initial Comments 26-year-old male with PMH of asthma, is here with complaints of chest pain which has been going on intermittently for the past 2 years. Patient used to work in a warehouse lifting heavy boxes when he first noticed the chest pain years ago. Patient states the current chest pain has been going on for the past 2 days, is constant, and nonradiating. Patient rates the pain 7/10. Patient states that during the night he wakes up suddenly short of breath and gets better when he sits up, but patient does not feel like his asthma is worsening. He does not use an inhaler in the night when these occurrences happen. Patient gets a sensation like he feels like vomiting when these events occur. Denies fever, palpitations, vomiting, acid reflux, heartburn, dizziness, headache, abdominal pain, belching or gas. Allergies and Home Medications Allergies Coded Allergies: No Known Drug Allergies (Unverified , 08/01/20) Patient Home Medication List Home Medication List Reviewed: Yes Albuterol Sulfate (Ventolin Hfa) 1 Puff Puff, 2 PUFF IH Q4H Prescribed by: CHRISSY MIMSSTMAGGY on 08/01/20 0745 Fluticasone Propion/Salmeterol (Fluticasone-Salmeterol 100-50) 1 Each Blst.w.dev, 1 EACH IH BID Prescribed by: CHRISSY MIMSSTMAGGY on 08/01/20 0745 Methylprednisolone (Medrol) 4 Mg Tab.ds.pk, 4 MG PO UD Prescribed by: AYUSH BRANTLEY on 08/31/18 1618 Prednisone (Prednisone) 50 Mg Tab, 50 MG PO DAILY Prescribed by: CHRISSY MIMSSTMAGGY on 08/01/20 0745 Prednisone (Prednisone) 20 Mg Tab, 40 MG PO DAILY Prescribed by: LORETTA HASSAN on 05/08/21 0102 Tramadol HCl (Tramadol HCl) 50 Mg Tablet, 50 MG PO Q6H PRN for PAIN Prescribed by: MORGAN GARZA on 09/03/18 1548 [paxlovid] Prescribed by: GAVINO CRUZ on 05/08/212156 Review of Systems Review of Systems Constitutional: no symptoms reported EENTM: No Symptoms Reported Respiratory: SOA at Rest Cardiovascular: Chest Pain Gastrointestinal: No Symptoms Reported Genitourinary: No Symptoms Reported Musculoskeletal: no symptoms reported Skin: no symptoms reported Psychiatric/Neurological: No Symptoms Reported Endocrine: No Symptoms Reported Hematologic/Lymphatic: No Symptoms Reported Past Ujvhbuu-Icwxdx-Btkczm Hx Patient Social History Tobacco Use?: No Use of E-Cig and/or Vaping dev: No Substance use?: No Alcohol Use?: No Immunizations Up To Date First/Initial COVID19 Vaccinat: Not currently vaccinated Second COVID19 Vaccination Hunter: Not currently vaccinated Third COVID19 Vaccination Date: Not currently vaccinated Seasonal Allergies Seasonal Allergies: No Past Medical History Surgery/Hospitalization HX: Asthma Surgeries: No Respiratory: Yes Asthma Cardiac: No Neurological: No Genitourinary: No Gastrointestinal: No Musculoskeletal: No Endocrine: No HEENT: No Cancer: No Psychosocial: No Integumentary: No Blood Disorders: No Physical Exam Vital Signs Vital Signs - First Documented 03/05/22 09:41 Temp 35.8 Pulse 73 Resp 16 B/P (MAP) 150/83 (105) Pulse Ox 100 O2 Delivery Room Air Capillary Refill : Height, Weight, BMI Height: 5'6.00" Weight: 210lbs. 0oz. [id number]; 48.00 BMI Method:Stated General Appearance: No Apparent Distress, WD/WN, Obese HEENT: PERRL/EOMI Neck: Full Range of Motion, Normal Inspection, Non Tender Respiratory: Chest Non Tender, Lungs Clear, Normal Breath Sounds, No Accessory Muscle Use Cardiovascular: Regular Rate, Rhythm, No Edema, No Murmur Gastrointestinal: Normal Bowel Sounds, Non Tender, Soft Extremity: Normal Range of Motion Neurologic/Psychiatric: Alert, Oriented x3, No Motor/Sensory Deficits Skin: Normal Color, Warm/Dry Lymphatic: No Adenopathy Progress/Results/Core Measures Results/Orders Lab Results Laboratory Tests Test 03/05/22 09:45 03/05/22 09:52 Range/Units White Blood Count 8.0 4.3-11.0 10^3/uL Red Blood Count 5.75 H 4.30-5.52 10^6/uL Hemoglobin 15.7 13.3-17.7 g/dL Hematocrit 46 40-54 % Mean Corpuscular Volume 80 80-99 fL Mean Corpuscular Hemoglobin 27 25-34 pg Mean Corpuscular Hemoglobin Concent 34 32-36 g/dL Red Cell Distribution Width 12.9 10.0-14.5 % Platelet Count 240 130-400 10^3/uL Mean Platelet Volume 10.0 9.0-12.2 fL Immature Granulocyte % (Auto) 1 % Neutrophils (%) (Auto) 54 42-75 % Lymphocytes (%) (Auto) 36 12-44 % Monocytes (%) (Auto) 7 0-12 % Eosinophils (%) (Auto) 2 0-10 % Basophils (%) (Auto) 0 0-10 % Neutrophils # (Auto) 4.4 1.8-7.8 10^3/uL Lymphocytes # (Auto) 2.9 1.0-4.0 10^3/uL Monocytes # (Auto) 0.5 0.0-1.0 10^3/uL Eosinophils # (Auto) 0.1 0.0-0.3 10^3/uL Basophils # (Auto) 0.0 0.0-0.1 10^3/uL Immature Granulocyte # (Auto) 0.1 0.0-0.1 10^3/uL Sodium Level 138 135-145 MMOL/L Potassium Level 4.1 3.6-5.0 MMOL/L Chloride Level 98 98-107 MMOL/L Carbon Dioxide Level 27 21-32 MMOL/L Anion Gap 13 5-14 MMOL/L Blood Urea Nitrogen 14 7-18 MG/DL Creatinine 1.01 0.60-1.30 MG/DL Estimat Glomerular Filtration Rate 106 BUN/Creatinine Ratio 14 Glucose Level 105 70-105 MG/DL Calcium Level 9.9 8.5-10.1 MG/DL Corrected Calcium 8.5-10.1 MG/DL Magnesium Level 2.1 1.6-2.4 MG/DL Total Bilirubin 0.9 0.1-1.0 MG/DL Aspartate Amino Transf (AST/SGOT) 28 5-34 U/L Alanine Aminotransferase (ALT/SGPT) 59 H 0-55 U/L Alkaline Phosphatase 58 40-136 U/L Troponin I < 0.30 <0.30 NG/ML Total Protein 7.7 6.4-8.2 GM/DL Albumin 4.7 H 3.2-4.5 GM/DL Urine Color YELLOW Urine Clarity CLEAR Urine pH 6.0 5-9 Urine Specific Foster >=1.030 1.016-1.022 Urine Protein NEGATIVE NEGATIVE Urine Glucose (UA) NEGATIVE NEGATIVE Urine Ketones NEGATIVE NEGATIVE Urine Nitrite NEGATIVE NEGATIVE Urine Bilirubin NEGATIVE NEGATIVE Urine Urobilinogen 0.2 < = 1.0 MG/DL Urine Leukocyte Esterase NEGATIVE NEGATIVE Urine RBC (Auto) NEGATIVE NEGATIVE Urine RBC NONE /HPF Urine WBC RARE /HPF Urine Squamous Epithelial Cells 0-2 /HPF Urine Crystals NONE /LPF Urine Bacteria MODERATE H /HPF Urine Casts NONE /LPF Urine Mucus SMALL H /LPF Urine Culture Indicated NO Urine Opiates Screen NEGATIVE NEGATIVE Urine Oxycodone Screen NEGATIVE NEGATIVE Urine Methadone Screen NEGATIVE NEGATIVE Urine Propoxyphene Screen NEGATIVE NEGATIVE Urine Barbiturates Screen NEGATIVE NEGATIVE Ur Tricyclic Antidepressants Screen NEGATIVE NEGATIVE Urine Phencyclidine Screen NEGATIVE NEGATIVE Urine Amphetamines Screen NEGATIVE NEGATIVE Urine Methamphetamines Screen NEGATIVE NEGATIVE Urine Benzodiazepines Screen NEGATIVE NEGATIVE Urine Cocaine Screen NEGATIVE NEGATIVE Urine Cannabinoids Screen NEGATIVE NEGATIVE My Orders Orders - TITA PATTERSON MD Cbc With Automated Diff (03/05/22 09:37) Comprehensive Metabolic Panel (03/05/22 09:37) Drug Screen Stat (Urine) (03/05/22 09:37) Magnesium (03/05/22 09:37) Ua Culture If Indicated (03/05/22 09:37) Troponin I Fs (03/05/22 09:37) Chest 1 View Ap/Pa Only (03/05/22 09:37) Famotidine Injection (Pepcid Injection) (03/05/22 09:37) Antacid Suspension (Mylanta Suspension (03/05/22 09:45) Ekg Tracing (03/05/22 10:27) Medications Given in ED Current Medications Medications Dose Ordered Sig/Juarez Route Start Time Stop Time Status Last Admin Dose Admin Al Hydrox/Mg Hydrox/Simethicone 30 ml ONCE ONCE PO 03/05/22 09:45 03/05/22 09:47 DC 03/05/22 09:53 30 ML Vital Signs/I&O 03/05/22 09:41 Temp 35.8 Pulse 73 Resp 16 B/P (MAP) 150/83 (105) Pulse Ox 100 O2 Delivery Room Air Progress Progress Note : Progress Note 1. GERD/ ACS RULE OUT: - CXR: no acute findings - Troponin/ EKG: non-ischemic - Labs normal - UDS neg - Pepcid/ Maalox in ER - Advised weight loss - Advised Pepcid, over the counter 20mg daily/ Maalox to be used as needed for heartburn after meals - Follow up with PCP in 7 to 14 days -The patient was seen in the ED, and treated appropriately to presentation at a specific point in time. Patient is informed that there is a possibility that disease and illness can evolve and change in acuity rapidly or slowly after patient is discharged from the ER. Precautionary advice given to the patient for immediate return to ER if symptoms worsen or do not resolve, and to seek emergency care sooner rather than later. Pt also advised on the importance of PCP follow up and compliance with management and follow up plan with PCP and/or specialist, as this is part of the management plan. Pt verbally expressed understanding. Initial ECG Impression Date: Mar 05, 2022 Initial ECG Impression Time: 09:32 Initial ECG Rate: 76 Initial ECG Rhythm: Normal Sinus Initial ECG Intervals: Normal Initial ECG Impression: Normal Initial ECG Comparisson: No Previous ECG Available Diagnostic Imaging Diagonstic Imaging: Xray Plain Films/CT/US/NM/MRI: chest Comments [facility], [place] NAME: [facility]OLFG[facility]ALOBOS [facility] REC#: [id number] PT STATUS: REG ER : 1995 PHYSICIAN: TITA PATTERSON MD ADMIT DATE: 03/05/22/ER FS Draft Date of Exam:03/05/22 CHEST 1 VIEW AP/PA ONLY CLINICAL INDICATIONS: Patient with chest pain. EXAM: Portable chest x-ray upright view. COMPARISON: Chest x-ray dated 05/08/2021. FINDINGS: Lungs/pleura: Lungs are clear. There is no pneumothorax. There is no pleural effusion. Mediastinum: Unremarkable. Pulmonary vasculature: Unremarkable. Heart: Unremarkable. Bones/extrathoracic soft tissue: Unremarkable. IMPRESSION: There is no radiographic evidence of acute cardiopulmonary process. Dictated on workstation # [id number] Dict: 03/05/22 1005 Trans: 03/05/22 1008 [id number] Interpreted by: TRUDI COLON MD Electronically signed by: Departure Impression Primary Impression: GERD (gastroesophageal reflux disease) Qualified Codes: K21.9 - Gastro-esophageal reflux disease without esophagitis Additional Impression: Ruled out for myocardial infarction Disposition: HOME, SELF-CARE Condition: Stable Departure-Patient Inst. Referrals: NO,LOCAL PHYSICIAN (PCP/Family) Primary Care Physician Patient Instructions: Chest Pain That Is Not Caused by the Heart (DC), Acid Reflux and Gastroesophageal Reflux Disease in Adults Add. Discharge Instructions: - Pepcid, over the counter 20mg daily - Maalox to be used as needed for heartburn after meals - Follow up with PCP in 7 to 14 days - Return to ER if symptoms continue or worsen All discharge instructions reviewed with patient and/or family. Voiced understanding. TITA PATTERSON MD Mar 05, 2022 09:36
[2022-03-05] MEDS ORDERED: FAMOTIDINE 20MG/2ML IV (PEPCID) IV STA (09:37)
[2022-03-05 09:41] VITALS: BP 150/83
[2022-03-05] MEDS ORDERED: ANTACID SUSP 30 ML UDC (MYLANTA) PO ONE (09:45)
[2022-03-05 09:50] LABS: BASOPHILS % (AUTO) 0 % (0-10); EOSINOPHILS # (AUTO) 0.1 10^3/uL (0.0-0.3); EOSINOPHILS % (AUTO) 2 % (0-10); HEMATOCRIT 46 % (40-54); HEMOGLOBIN 15.7 g/dL (13.3-17.7); LYMPHOCYTES # (AUTO) 2.9 10^3/uL (1.0-4.0); LYMPHOCYTES % (AUTO) 36 % (12-44); MEAN CORPUSCULAR HEMOGLOBIN 27 pg (25-34); MEAN CORPUSCULAR HGB CONC 34 g/dL (32-36); MEAN CORPUSCULAR VOLUME 80 fL (80-99); MONOCYTES # (AUTO) 0.5 10^3/uL (0.0-1.0); MONOCYTES % (AUTO) 7 % (0-12); NEUTROPHILS # (AUTO) 4.4 10^3/uL (1.8-7.8); NEUTROPHILS % (AUTO) 54 % (42-75); PLATELET COUNT 240 10^3/uL (130-400)
[2022-03-05 10:00] LABS: BILIRUBIN,URINE NEGATIVE (NEGATIVE); CLARITY,URINE CLEAR; COLOR,URINE YELLOW; GLUCOSE, URINE (UA) NEGATIVE (NEGATIVE); KETONES,URINE NEGATIVE (NEGATIVE); LEUKOCYTE ESTERASE ,URINE NEGATIVE (NEGATIVE); NITRITE,URINE NEGATIVE (NEGATIVE); PROTEIN,URINE NEGATIVE (NEGATIVE)
--- NOTE | 2022-03-05 10:08 | Diagnostic Imaging Report ---
CLINICAL INDICATIONS: Patient with chest pain. EXAM: Portable chest x-ray upright view. COMPARISON: Chest x-ray dated 05/08/2021. FINDINGS: Lungs/pleura: Lungs are clear. There is no pneumothorax. There is no pleural effusion. Mediastinum: Unremarkable. Pulmonary vasculature: Unremarkable. Heart: Unremarkable. Bones/extrathoracic soft tissue: Unremarkable. IMPRESSION: There is no radiographic evidence of acute cardiopulmonary process. Dictated by: Dictated on workstation # [id number]
[2022-03-05 10:09] LABS: BACTERIA,URINE MODERATE /HPF; SQUAMOUS EPITHELIAL CELL,UR 0-2 /HPF; WBC,URINE RARE /HPF
[2022-03-05 10:11] LABS: ALANINE AMINOTRANSFERASE 59 U/L (0-55); ALKALINE PHOSPHATASE 58 U/L (40-136); BILIRUBIN,TOTAL 0.9 MG/DL (0.1-1.0); BUN/CREATININE RATIO 14; CALCIUM 9.9 MG/DL (8.5-10.1); CARBON DIOXIDE 27 MMOL/L (21-32); CHLORIDE 98 MMOL/L (98-107); CREATININE SERUM 1.01 MG/DL (0.60-1.30); GFR ESTIMATED 106; GLUCOSE 105 MG/DL (70-105); MAGNESIUM 2.1 MG/DL (1.6-2.4); POTASSIUM 4.1 MMOL/L (3.6-5.0); SODIUM 138 MMOL/L (135-145); TOTAL PROTEIN 7.7 GM/DL (6.4-8.2)
[2022-03-05 10:12] LABS: ALBUMIN 4.7 GM/DL (3.2-4.5)
[2022-03-05 10:20] LABS: AMPHETAMINE SCREEN, URINE NEGATIVE (NEGATIVE); BARBITURATE SCREEN URINE NEGATIVE (NEGATIVE); BENZODIAZEPINES SCREEN URINE NEGATIVE (NEGATIVE); CANNABINOID SCREEN, URINE NEGATIVE (NEGATIVE); COCAINE SCREEN URINE NEGATIVE (NEGATIVE); METHADONE STAT NEGATIVE (NEGATIVE); OPIATE SCREEN URINE NEGATIVE (NEGATIVE); OXYCODONE STAT NEGATIVE (NEGATIVE); PROPOXYPHENE STAT NEGATIVE (NEGATIVE); TRICYCLIC ANTIDEPRESSANTS SCRE NEGATIVE (NEGATIVE)
== END 2022-03-05 10:41 | disposition home or self-care (01) ==
LOC: EDUNIT# 09:23 → ER FS 09:24
DX: K21.9 Gastro-esophageal reflux disease without esophagitis (principal); E66.9 Obesity, unspecified; Z68.42 Body mass index [BMI] 45.0-49.9, adult; Z28.311 Partially vaccinated for COVID-19
CPT/HCPCS: 36415; 71045; 80053; 80306; 81000; 83735; 84484; 85025; 93005